=== PATIENT | male | born 1935 | race Caucasian/White ===

== ENCOUNTER → 2018-03-27 12:29 | Outpatient (CLI) | payer MEDICARE, OTHER ==
[2016-07-13 12:51] VITALS: BMI 36.1
[~2018-03-27 12:29] MED LIST: ACETAMINOPHEN500 M1 PO; BAYER CHEWABLE81 MG PO; CORDARONE200 MG PO; COZAAR50 MG PO; CRESTOR5 MG PO; FLOMAX0.4 MG PO; IBUPROFEN600 MG PO; KEFLEX500 MG PO; MACROBID100 MG PO; NEXIUM40 MG PO; PINDOLOL5 MG PO; PLAVIX75 MG PO; PRADAXA150 MG PO; ROBAXIN500 MG PO; ULTRAM50 MG PO; VERELAN180 MG PO; ZYLOPRIM300 MG PO
== END | disposition home or self-care (01) ==
LOC: D.CT 12:29
DX: M25.552 Pain in left hip (principal)

== ENCOUNTER → 2018-06-25 09:36 | Outpatient (CLI) | payer MEDICARE, OTHER ==
[2016-07-13 12:51] VITALS: BMI 36.1
== END | disposition home or self-care (01) ==
LOC: D.US 09:36
DX: I65.23 Occlusion and stenosis of bilateral carotid arteries (principal)

== ENCOUNTER 2019-02-24 14:47 | Inpatient (IN) | payer MEDICARE, OTHER ==
[~2019-02-24] VITALS: Ht 182.9 cm; Wt 138.3 kg
[2019-02-24 15:47] VITALS: BP 154/82; BMI 41.4
[2019-02-24 16:10] LABS: BASOPHILS 0.6 % (0-2); EOSINOPHILS 3.4 % (0-7); HEMATOCRIT 44.9 % (42.0-54.0); HEMOGLOBIN 14.6 g/dL (13.5-17.5); IMMATURE GRANULOCYTES 0.4 % (0-5); LYMPHOCYTES 28.7 % (15-50); MCH 30.5 pg (26.0-34.0); MCHC 32.5 g/dL (31.0-37.0); MCV 93.7 fL (80.0-100.0); MEAN PLATELET VOLUME 10.2 fL (7.4-10.4); MONOCYTES 13.7 % (2-11); NEUTROPHILS 53.2 % (40-80); PLATELET COUNT 188 10x3/uL (130-400); RBC 4.79 10x6/uL (4.20-6.10); RDW 14.5 % (11.5-14.5); WBC 10.6 10x3/uL (4.8-10.8)
[2019-02-24 16:14] LABS: ALBUMIN 3.1 g/dL (3.4-5.0); ANION GAP 12.3 mmol/L (8-16); BILIRUBIN - TOTAL 0.72 mg/dL (0.2-1.3); CALCIUM 9.4 mg/dL (8.5-10.1); CARBON DIOXIDE 29.1 mmol/L (21.0-32.0); CREATININE - SERUM 1.4 mg/dL (0.6-1.3); POTASSIUM - SERUM 4.4 mmol/L (3.5-5.1); PROTEIN - SERUM 7.9 g/dL (6.4-8.2)
--- NOTE | 2019-02-24 17:00 | NUR ---
PATIENT IV STARTED IN RIGHT ARM WITH X 2 STICKS. TOLERATED WITH SMALL AMOUNT OF PAIN. PATIENT ALREADY DRANK CONTRAST FOR CT. AWAITING TRANSPORTATION. CALL LIGHT WITHIN REACH.
[2019-02-24] MEDS ORDERED: PINDOLOL5 MG PO (17:25)
--- NOTE | 2019-02-24 18:45 | NUR ---
PATIENT IN BED WITH IV INTACT. NO COMPLAINTS OR SIGNS OF DISTRESS. TELE PLACED ON PATIENT. PATIENT BACK FOR CT. CALL LIGHT WITHIN REACH.
--- NOTE | 2019-02-24 20:00 | NUR ---
PT SITTING UP IN BED, NO SIGNS OF DISTRESS. ALERT AND ORIENTED. IV RIGHT FA INFUSING D5 1/2NS @ 75. HR 69 SR BUNDLE BRANCH PER TELE. PT HAS PACEMAKER LEFT SIDE. DENIES NEEDS AT THIS TIME. CL IN REACH, WILL CONT TO MONITOR
[2019-02-24 21:20] VITALS: BP 163/90
[2019-02-25 00:26] VITALS: BP 122/72
[2019-02-25 00:56] LABS: APPEARANCE CLEAR (CLEAR); BILIRUBIN NEGATIVE (NEGATIVE); COLOR YELLOW (YELLOW); GLUCOSE NEGATIVE (NEGATIVE); KETONE NEGATIVE (NEGATIVE); NITRITE NEGATIVE (NEGATIVE); PROTEIN NEGATIVE (NEGATIVE); UROBILINOGEN NORMAL (NORMAL)
[2019-02-25 04:38] VITALS: BP 121/79
[2019-02-25 06:23] LABS: BASOPHILS 0.8 % (0-2); EOSINOPHILS 4.9 % (0-7); HEMATOCRIT 41.7 % (42.0-54.0); HEMOGLOBIN 13.8 g/dL (13.5-17.5); IMMATURE GRANULOCYTES 0.5 % (0-5); LYMPHOCYTES 29.8 % (15-50); MCH 30.7 pg (26.0-34.0); MCHC 33.1 g/dL (31.0-37.0); MCV 92.9 fL (80.0-100.0); MEAN PLATELET VOLUME 10.5 fL (7.4-10.4); MONOCYTES 14.8 % (2-11); NEUTROPHILS 49.2 % (40-80); PLATELET COUNT 159 10x3/uL (130-400); RBC 4.49 10x6/uL (4.20-6.10); RDW 14.7 % (11.5-14.5); WBC 8.5 10x3/uL (4.8-10.8)
[2019-02-25 07:10] LABS: ANION GAP 14.4 mmol/L (8-16); CALCIUM 8.5 mg/dL (8.5-10.1); CARBON DIOXIDE 26.6 mmol/L (21.0-32.0); CREATININE - SERUM 1.3 mg/dL (0.6-1.3)
[2019-02-25] MEDS ORDERED: REGLAN10 MG PO (07:36)
[2019-02-25] MEDS ORDERED: LASIX40 MG PO (07:37)
[2019-02-25] MEDS ORDERED: PROTONIX40 MG PO (07:38)
[2019-02-25] MEDS ORDERED: CRESTOR5 MG PO (07:39)
[2019-02-25] MEDS ORDERED: COLACE100 MG PO (07:40)
[2019-02-25 08:44] VITALS: BP 137/80
[2019-02-25 12:30] VITALS: BP 119/77
[2019-02-25 13:05] VITALS: Ht 182.9 cm; Wt 138.3 kg
--- NOTE | 2019-02-25 13:09 | NUR ---
PT DOING WELL WITH GO LYTELY, PT HAS HAD OVER HALFE THE BOTTLE, NO NEEDS VOICED, CONTINUE WITH PLAN OF CARE
[2019-02-25 15:38] VITALS: BP 120/80
--- NOTE | 2019-02-25 18:25 | NUR ---
PT COMPLETED GO MICAHTELY, STATES HE FEELS WEAK, ADVISED PT TO [facility] FOR ASSSITANCE IF HE NEEEDS TO GET UP AND FEELS WEAK STILL, NO OTHER NEEDS VOICED, CONTINUE WITH PLAN OF CARE
--- NOTE | 2019-02-25 20:00 | NUR ---
PT SITTING UP IN BED, NO SIGNS OF DISTRESS. ALERT AND ORIENTED. PT HAS DRANK ALL OF GOLYTELY AND TOLERATED WELL, STATES HE HAS HAS MANY BOWEL MOVEMENTS TODAY. REQUESTED BED CHANGE. ASSISTED PT UP TO BEDSIDE CHAIR AND CHANGED LINENS AND ASSISTED BACK TO BED. IV RIGHT FA INFUSING D5 1/2NS @ 75. DENIES PAIN OR NEEDS. CL IN REACH, WILL CONT TO MONITOR
[2019-02-25 22:16] VITALS: BP 93/54
[2019-02-26 04:51] VITALS: BP 96/52
--- NOTE | 2019-02-26 07:45 | NUR ---
MORNING ASSESSMENT COMPLETE. SEE ASSESSMENT FLOWSHEET FOR FURTHER DETAILS. PT LYING IN BED AAO X4 TO PERSON, PLACE, TIME, AND SITUATION. DENIES NEEDS AT THIS TIME. CL IN REACH/ SIDE RAILS UP X3 FOR PT SAEFTY. BED IN LOWEST POSITION. FAMILY AT BEDSIDE.
[2019-02-26 07:48] LABS: ANION GAP 12.4 mmol/L (8-16); CALCIUM 8.3 mg/dL (8.5-10.1); CARBON DIOXIDE 28.1 mmol/L (21.0-32.0); CREATININE - SERUM 1.3 mg/dL (0.6-1.3); POTASSIUM - SERUM 3.5 mmol/L (3.5-5.1)
[2019-02-26 07:49] LABS: INR 1.62 (0.85-1.17); PROTIME 18.6 SECONDS (11.6-15.0)
[2019-02-26 08:01] LABS: BASOPHILS 0.6 % (0-2); EOSINOPHILS 4.2 % (0-7); HEMATOCRIT 39.2 % (42.0-54.0); HEMOGLOBIN 12.9 g/dL (13.5-17.5); IMMATURE GRANULOCYTES 0.5 % (0-5); LYMPHOCYTES 25.8 % (15-50); MCH 30.6 pg (26.0-34.0); MCHC 32.9 g/dL (31.0-37.0); MCV 93.1 fL (80.0-100.0); MEAN PLATELET VOLUME 10.5 fL (7.4-10.4); MONOCYTES 15.1 % (2-11); NEUTROPHILS 53.8 % (40-80); PLATELET COUNT 166 10x3/uL (130-400); RBC 4.21 10x6/uL (4.20-6.10); RDW 14.9 % (11.5-14.5); WBC 7.8 10x3/uL (4.8-10.8)
[2019-02-26 08:30] VITALS: BP 112/72
[2019-02-26 11:56] VITALS: BP 113/68
[2019-02-26 15:13] VITALS: BP 112/67
--- NOTE | 2019-02-26 19:12 | NUR ---
I have reviewed this patient and I concur with the Shift Assessment completed by the Licensed Practical Nurse today this shift.
--- NOTE | 2019-02-26 20:00 | NUR ---
ASSESSMENT PER FLOWSHEET. IV PATENT RT FOREARM OF D51/2NS AT 75CC'S/HR. SITE CLEAR. TELM. SHOWS SR WITH PACED BEATS W/HR AT 88-89. VOIDS IN URINAL. SR UP X2 CALL LIGHT WITHIN REACH.
--- NOTE | 2019-02-26 21:30 | NUR ---
MEDS GIVEN PER MAR.
[2019-02-26 22:53] VITALS: BP 122/70
--- NOTE | 2019-02-27 | NUR ---
EYES CLOSED RESPIRATIONS WITH EASE AND UNLABORED.
--- NOTE | 2019-02-27 02:28 | NUR ---
RESTING QUIETLY BODY IN GOOD ALIGNMENT.
[2019-02-27 05:24] VITALS: BP 105/63
--- NOTE | 2019-02-27 06:20 | NUR ---
MEDS GIVEN PER JAN. SR UP X2 CALL LIGHT WITHIN REACH.
[2019-02-27 06:43] LABS: BASOPHILS 0.8 % (0-2); EOSINOPHILS 6.1 % (0-7); HEMATOCRIT 37.8 % (42.0-54.0); HEMOGLOBIN 12.4 g/dL (13.5-17.5); IMMATURE GRANULOCYTES 0.7 % (0-5); LYMPHOCYTES 26.2 % (15-50); MCH 30.2 pg (26.0-34.0); MCHC 32.8 g/dL (31.0-37.0); MCV 92.2 fL (80.0-100.0); MEAN PLATELET VOLUME 10.3 fL (7.4-10.4); MONOCYTES 16.8 % (2-11); NEUTROPHILS 49.4 % (40-80); PLATELET COUNT 152 10x3/uL (130-400); RDW 14.8 % (11.5-14.5); WBC 7.3 10x3/uL (4.8-10.8)
[2019-02-27 07:03] LABS: ANION GAP 14.8 mmol/L (8-16); CALCIUM 8.2 mg/dL (8.5-10.1); CARBON DIOXIDE 24.7 mmol/L (21.0-32.0); CREATININE - SERUM 1.4 mg/dL (0.6-1.3); POTASSIUM - SERUM 3.5 mmol/L (3.5-5.1)
--- NOTE | 2019-02-27 08:15 | NUR ---
PATIENT IN BED WITH IV INTACT. NO COMPLAINTS OR SIGNS OF DISTRESS. CALL LIGHT WITHIN REACH. FAMILY AT BEDSIDE.
[2019-02-27 08:52] VITALS: BP 133/65
--- NOTE | 2019-02-27 12:45 | NUR ---
NUTRITION F/U PT TOLERATING REG DIET WITH GOOD INTAKE RECENT MEALS. WILL CONTINUE TO PROVIDE DIET, MONITOR PO INTAKE. RD FOLLOWING
[2019-02-27 12:57] VITALS: BP 91/52
[2019-02-27] MEDS ORDERED: LEVAQUIN750 MG PO (13:49)
[2019-02-27] MEDS ORDERED: FLAGYL500 MG PO (13:49)
[2019-02-27] MEDS ORDERED: CARAFATE1 G PO ×2 (13:49→13:52)
--- NOTE | 2019-02-27 14:29 | NUR ---
PATIENT IV REMOVED AT THIS TIME WITH CATH TIP INTACT. FAMILY AT BEDSIDE. AWAITING DC INSTRUCTIONS. CALL LIGHT WITHIN REACH.
--- NOTE | 2019-02-27 14:45 | MORECARE ---
CASE MANAGEMENT DISCHARGE SUMMARY PATIENT: ALCIDES ROMERO UNIT: [id number] ADM DATE: 02/24/19 AGE: 83 : 34 SEX: M ROOM/BED: D.2219 AUTHOR: LISBETH HARRINGTON PHYSICIAN: REFERRING PHYSICIAN: CHEN ZUNIGA MD DATE OF SERVICE: 02/27/19 Discharge Plan Patient Name: ALCIDES ROMERO [facility] [facility] 1935 Planned Disposition: Anticipated Discharge Date: Discharge Date: Expected LOS: Initial Reviewer: [email or web address] Initial Review Date: 02/24/2019 Generated: 02/27/19 3:44 pm Comments DCP- Discharge Planning Updated by [email or web address]: Kateryna Bustamante on 02/27/19 1:[address] PATIENT DISCHARGING HOME TODAY, AT BEDSIDE. DENIES ANY NEEDS AND FEELS SAFE GOING HOME. IMM SERVED AND EXPLAINED. CM TO FOLLOW NEEDED Coverage Notice Reviewer: [id number] - Kateryna Bustamante Notice Issued Date-Time: 02/27/2019 14:40 Notice Type: IM Discharge Notice Notice Delivered To: Patient Relationship to Patient: Communications Advisor Name: Delivery Method: HAND - Hand Delivered Chelsy Days: Prior Verbal Notification: Recipient Understood Notice: Yes Recipient Signature: Yes Med Rec Note Co-signed by Attending: Coverage Notice Comment: Patient Name: ALCIDES ROMERO Page [id number] at 1445 All edits/amendments must be made on the electronic document DICTATION DATE: 02/27/191443 PHYSIOTHERAPIST'S ASSISTANT: BASIM 02/27/19 1444 RPT#: [id number] DC DATE: STATUS: ADM IN [facility] [address] [place] [address] END OF REPORT
--- NOTE | 2019-02-27 14:47 | NUR ---
PATIENT RECIEVED DC INSTRUCTIONS. VERBALIZED UNDERSTANDING. NO QUESTIONS AT THIS TIME. EXPLAINED TO DIRECTOR OF SOCIAL SERVICES PRESCRIPTIONS AT [facility]. VERBALIZED UNDERSTANDING. NO QUESTIONS AT THIS TIME. FAMILY AT BEDSIDE.
[2019-02-28] MEDS ORDERED: ZIAC 10-6.25 MG1 TAB PO (19:58)
== END 2019-02-27 14:53 | disposition home or self-care (01) | DRG 392 ==
LOC: D.MS 14:47
PROVIDERS: Internal Medicine Gastroenterology; Internal Medicine Nephrology; ADMIT Family Medicine; ATTEND Family Medicine
PROC: 0DBL8ZZ Excision of Transverse Colon, Via Natural or Artificial Opening Endoscopic (ICD-10-PCS; 2019-02-26)
PROC: 0DB68ZX Excision of Stomach, Via Natural or Artificial Opening Endoscopic, Diagnostic (ICD-10-PCS; principal; 2019-02-26 17:00)
DX: K58.9 Irritable bowel syndrome, unspecified (principal); Z68.41 Body mass index [BMI] 40.0-44.9, adult; K57.90 Diverticulosis of intestine, part unspecified, without perforation or abscess without bleeding; I25.10 Atherosclerotic heart disease of native coronary artery without angina pectoris; I10 Essential (primary) hypertension; K29.70 Gastritis, unspecified, without bleeding; K63.9 Disease of intestine, unspecified; R63.4 Abnormal weight loss

== ENCOUNTER 2019-02-28 19:50 | Emergency (ER) | payer MEDICARE, OTHER ==
[~2019-02-28] VITALS: Ht 182.9 cm; Wt 136.4 kg
[~2019-02-28 19:50] MED LIST changes: +CARAFATE1 G PO; +COLACE100 MG PO; +FLAGYL500 MG PO; +LASIX40 MG PO; +LEVAQUIN750 MG PO; +PROTONIX40 MG PO; +REGLAN10 MG PO
[2019-02-28 19:55] VITALS: Ht 182.9 cm; Wt 136.4 kg
[2019-02-28] MEDS ORDERED: ZIAC 10-6.25 MG1 TAB PO (19:58)
[2019-02-28 20:34] LABS: BASOPHILS 0.7 % (0-2); EOSINOPHILS 4.3 % (0-7); HEMATOCRIT 37.9 % (42.0-54.0); HEMOGLOBIN 12.5 g/dL (13.5-17.5); IMMATURE GRANULOCYTES 0.6 % (0-5); LYMPHOCYTES 24.8 % (15-50); MCH 30.7 pg (26.0-34.0); MCV 93.1 fL (80.0-100.0); MEAN PLATELET VOLUME 10.2 fL (7.4-10.4); MONOCYTES 14.6 % (2-11); PLATELET COUNT 147 10x3/uL (130-400); RBC 4.07 10x6/uL (4.20-6.10)
[2019-02-28 20:41] LABS: WBC 9.4 10x3/uL (4.8-10.8)
[2019-02-28 20:58] LABS: ALBUMIN 2.6 g/dL (3.4-5.0); ANION GAP 12.2 mmol/L (8-16); BILIRUBIN - TOTAL 0.59 mg/dL (0.2-1.3); CALCIUM 8.3 mg/dL (8.5-10.1); CARBON DIOXIDE 26.2 mmol/L (21.0-32.0); CREATININE - SERUM 1.4 mg/dL (0.6-1.3); POTASSIUM - SERUM 3.4 mmol/L (3.5-5.1); PROTEIN - SERUM 6.9 g/dL (6.4-8.2)
[2019-03-01 02:13] VITALS: BP 111/65
[2019-03-03] MEDS ORDERED: [UNRECOGNIZED DRUG - OTHER] RC (11:55)
== END 2019-02-28 21:50 | disposition home or self-care (01) ==
LOC: D.ER 19:50
PROVIDERS: Emergency Medicine
DX: K62.5 Hemorrhage of anus and rectum (principal); Z86.010 Personal history of colon polyps; I25.10 Atherosclerotic heart disease of native coronary artery without angina pectoris; I10 Essential (primary) hypertension

== ENCOUNTER → 2019-03-03 | Emergency (ER) | payer MEDICARE, OTHER ==
[~2019-03-03] VITALS: Ht 182.9 cm; Wt 136.4 kg
[~2019-03-03] MED LIST changes: +ZIAC 10-6.25 MG1 TAB PO; +[UNRECOGNIZED DRUG - OTHER] RC
[2019-03-03 09:41] VITALS: BP 137/70; Ht 182.9 cm; Wt 136.4 kg
[2019-03-03 10:19] LABS: BASOPHILS 0.8 % (0-2); EOSINOPHILS 3.8 % (0-7); HEMATOCRIT 39.3 % (42.0-54.0); HEMOGLOBIN 13.1 g/dL (13.5-17.5); IMMATURE GRANULOCYTES 0.5 % (0-5); LYMPHOCYTES 24.8 % (15-50); MCH 30.8 pg (26.0-34.0); MCHC 33.3 g/dL (31.0-37.0); MCV 92.3 fL (80.0-100.0); MEAN PLATELET VOLUME 10.2 fL (7.4-10.4); MONOCYTES 14.2 % (2-11); NEUTROPHILS 55.9 % (40-80); PLATELET COUNT 170 10x3/uL (130-400); RBC 4.26 10x6/uL (4.20-6.10); RDW 14.7 % (11.5-14.5); WBC 9.1 10x3/uL (4.8-10.8)
[2019-03-03 10:23] LABS: ALBUMIN 2.8 g/dL (3.4-5.0); ANION GAP 9.4 mmol/L (8-16); BILIRUBIN - TOTAL 0.49 mg/dL (0.2-1.3); CALCIUM 8.7 mg/dL (8.5-10.1); CARBON DIOXIDE 27.5 mmol/L (21.0-32.0); CREATININE - SERUM 1.3 mg/dL (0.6-1.3); POTASSIUM - SERUM 3.9 mmol/L (3.5-5.1); PROTEIN - SERUM 7.3 g/dL (6.4-8.2)
== END ==
LOC: D.ER 09:38
PROVIDERS: Family Medicine
DX: K64.8 Other hemorrhoids (principal); K92.1 Melena

== ENCOUNTER → 2019-06-17 10:30 | Outpatient (CLI) | payer MEDICARE, OTHER ==
[2019-03-03 09:41] VITALS: BMI 40.8
== END | disposition home or self-care (01) ==
LOC: D.US 10:30
PROVIDERS: ATTEND Internal Medicine Cardiovascular Disease
DX: I65.23 Occlusion and stenosis of bilateral carotid arteries (principal)

== ENCOUNTER → 2019-08-26 09:15 | Outpatient (CLI) | payer MEDICARE, OTHER ==
[2019-03-03 09:41] VITALS: BMI 40.8
[2019-08-26 10:33] LABS: ALBUMIN 3.3 g/dL (3.4-5.0); BILIRUBIN - DIRECT 0.19 mg/dL (0.00-0.30); BILIRUBIN - INDIRECT 0.48 mg/dL (0.00-1.00); BILIRUBIN - TOTAL 0.67 mg/dL (0.2-1.3); PROTEIN - SERUM 7.1 g/dL (6.4-8.2)
== END | disposition home or self-care (01) ==
LOC: D.US 09:15
PROVIDERS: ATTEND Internal Medicine Gastroenterology
DX: K76.0 Fatty (change of) liver, not elsewhere classified (principal)

== ENCOUNTER → 2020-06-22 08:00 | Outpatient (CLI) | payer MEDICARE, OTHER ==
[2019-03-03 09:41] VITALS: BMI 40.8
== END | disposition home or self-care (01) ==
LOC: D.US 08:00
PROVIDERS: ATTEND Internal Medicine Cardiovascular Disease
DX: I65.29 Occlusion and stenosis of unspecified carotid artery (principal)